=== PATIENT | female | born 1975 | race Caucasian/White ===

== ENCOUNTER 2016-08-26 09:15 | Emergency (ER) | payer MEDICAID ==
[~2016-08-26] VITALS: Ht 160 cm; Wt 64.5 kg
[2016-08-26 09:19] VITALS: Ht 160 cm; Wt 64.5 kg
[2016-08-26] MEDS ORDERED: ACETAMINOPHEN 325 MG TAB PO STA (09:35)
[2016-08-26 10:19] LABS: ADD SCAN DIFF NO
[2016-08-26 10:21] LABS: BASOPHILS % 0.3 % (0.0-2.0); EOSINOPHILS # 0.1 10^3/ul (0.0-0.5); EOSINOPHILS % 0.9 % (0.0-7.0); HEMATOCRIT 39.1 % (37.0-47.0); HEMOGLOBIN 13.4 g/dl (12.0-16.0); LYMPHOCYTES # 2.2 10^3/ul (0.8-2.9); LYMPHOCYTES % 31.5 % (15.0-51.0); MEAN CORPUSCULAR HEMOGLOBIN 30.9 pg (29.0-33.0); MEAN CORPUSCULAR HGB CONC 34.3 g/dl (32.0-37.0); MEAN CORPUSCULAR VOLUME 90.3 fl (82.0-101.0); MEAN PLATELET VOLUME 10.4 fl (7.4-10.4); MONOCYTE # 0.4 10^3/ul (0.3-0.9); MONOCYTES % 6.4 % (0.0-11.0); NEUTROPHIL # 4.1 10^3/ul (1.6-7.5); NEUTROPHILS % 60.6 % (39.0-77.0); PLATELET COUNT 267 10^3/UL (140-415); RED BLOOD COUNT 4.33 10^6/ul (4.20-5.40); RED CELL DISTRIBUTION WIDTH 14.5 % (11.5-14.5); WHITE BLOOD COUNT 6.8 10^3/ul (4.8-10.8)
--- NOTE | 2016-08-26 10:22 | RADRPT ---
PROCEDURE: US OB. CLINICAL INDICATION: 41-year-old female with vaginal bleeding. TECHNIQUE: Transabdominal and transvaginal views of the pelvis are available for review. COMPARISON: No prior studies are available for comparison. FINDINGS: The uterus is identified measuring 8.4 cm sagittal by 5.1 cm AP by 6.5 cm transverse. It contains a gestational sac measuring 1.4 x 1.1 x 1.8 cm. Mean sac diameter: 1.4 cm. This calculates out to 6 weeks 0 days. A yolk sac is identified with a pole. [place]-rump length is 0.55 cm: 6 weeks 2 days. Placenta: Circumferential grade 0. Presentation:Mobile [place]-rump length:1.4 cm heart rate:132 beats per minute. Amniotic fluid volume: Normal. Ultrasound estimated gestational age: The left ovary measures 2.7 x 1.95 1.9 cm. There is normal blood flow to the left ovary. The right ovary is not visualized. No ovarian or adnexal mass lesion is seen. Small amount of free fluid is present in the cul-de-sac. IMPRESSION: 1. A single viable fetus is identified presenting mobile with a heart rate of 132 beats per minute. AUA: 6 weeks 1 day plus or minus air weeks 3 days. 2. HAVEN (AUA: 04/10/2017. 3. The right ovary is not visualized. There is a small amount of free fluid in the cul-de-sac. RPTAT:AAJJ Physician Niecy Date Time Electronically viewed and signed by Kang Reilly Physician on 08/26/2016 10:22 JM/
[2016-08-26 10:34] LABS: ADD UMIC YES; UR ASCORBIC ACID NEGATIVE (NEGATIVE); UR BACTERIA FEW /HPF (NONE SEEN); UR BILIRUBIN (Dip) NEGATIVE (NEGATIVE); UR BLOOD (Dip) 2+ mg/dL (NEGATIVE); UR CLARITY CLEAR (CLEAR); UR COLOR STRAW (YELLOW); UR GLUCOSE (Dip) NEGATIVE (NEGATIVE); UR KETONES (Dip) NEGATIVE (NEGATIVE); UR LEUKOCYTE ESTERASE (Dip) NEGATIVE Leu/ul (NEGATIVE); UR NITRITE (Dip) NEGATIVE (NEGATIVE); UR RBC 0 /HPF (0-5); UR SPECIFIC GRAVITY (Dip) 1.003 (1.003-1.030); UR TOTAL PROTEIN (Dip) NEGATIVE (NEGATIVE); UR UROBILINOGEN (Dip) NEGATIVE (NEGATIVE)
--- NOTE | 2016-08-26 11:10 | ERD ---
ER Documentation Chief Complaint Date/Time DATE: 08/26/16 TIME: 11:06 Chief Complaint VAG BLEEDING X2 DAYS, , LMP 07/22/16 HPI This is a 41-year-old female presenting to the emergency department for vaginal bleeding 2 days. Patient states she is currently with last menstrual period 07/22/2016. Patient is a A0. Patient states she is having light pink spotting with passage of 2 small bright red clots. No passage of tissue. Patient is having lower back pain radiating to lower abdomen. No dysuria or hematuria. Patient is having urinary frequency. No nausea or vomiting. Patient is currently taking vitamins, iron, calcium and folic acid. ROS All systems reviewed and are negative except as per history of present illness. Allergies Allergies: Coded Allergies: No Known Allergy (Unverified , 08/26/16) PMhx/Soc Medical and Surgical Hx: pt denies Medical Hx, pt denies Surgical Hx Hx Alcohol Use: No Hx Substance Use: No Hx Tobacco Use: No Smoking Status: Never smoker Physical Exam Vitals Vital Signs Date Time Temp Pulse Resp B/P Pulse Ox O2 Delivery O2 Flow Rate FiO2 08/26/16 09:19 98.2 69 18 120/74 98 Physical Exam Const: No acute distress, alert Head: Atraumatic Eyes: Normal Conjunctiva ENT: Normal External Ears, Nose and Mouth. Neck: Full range of motion..~ No meningismus. Resp: Clear to auscultation bilaterally. No wheezing, rhonchi or crackles. Cardio: Regular rate and rhythm, no murmurs Abd: Soft, non tender, non distended. Normal bowel sounds Skin: No petechiae or rashes Back: No midline or flank tenderness Ext: No cyanosis, or edema Neur: Awake and alert Psych: Normal Mood and Affect Result Diagram: 08/26/16 0950 Results 24 hrs Laboratory Tests Test 08/26/16 09:50 White Blood Count 6.810^3/ul Red Blood Count 4.3310^6/ul Hemoglobin 13.4g/dl Hematocrit 39.1% Mean Corpuscular Volume 90.3fl Mean Corpuscular Hemoglobin 30.9pg Mean Corpuscular Hemoglobin Concent 34.3g/dl Red Cell Distribution Width 14.5% Platelet Count 12177^3/UL Mean Platelet Volume 10.4fl Neutrophils % 60.6% Lymphocytes % 31.5% Monocytes % 6.4% Eosinophils % 0.9% Basophils % 0.3% Nucleated Red Blood Cells % 0.0/100WBC Neutrophils # 4.110^3/ul Lymphocytes # 2.210^3/ul Monocytes # 0.410^3/ul Eosinophils # 0.110^3/ul Basophils # 0.010^3/ul Nucleated Red Blood Cells # 0.010^3/ul Urine Color STRAW Urine Clarity CLEAR Urine pH 8.0 Urine Specific [place] 1.003 Urine Ketones NEGATIVEmg/dL Urine Nitrite NEGATIVEmg/dL Urine Bilirubin NEGATIVEmg/dL Urine Urobilinogen NEGATIVEmg/dL Urine Leukocyte Esterase NEGATIVELeu/ul Urine Microscopic RBC 0/HPF Urine Microscopic WBC 1/HPF Urine Bacteria FEW/HPF Urine Hemoglobin 2+mg/dL Urine Glucose NEGATIVEmg/dL Urine Total Protein NEGATIVEmg/dl Beta HCG, Quantitative 54672.0mIU/ml Current Medications Medications (Trade) Dose Ordered Sig/[place]aine Route PRN Reason Start Time Stop Time Status Last Admin Dose Admin Acetaminophen (Tylenol Tab) 650 mg ONCE STAT PO 08/26/16 09:35 08/26/16 09:37 DC Procedures/[place] [id number] Radiology Main Line: [phone] DIAGNOSTIC IMAGING REPORT Patient: JOSEPH RICHARDSON : 1975 Age: 41 Sex: F MR #: [id number] DOS: 08/26/16 0935 Ordering MD: ALFONSO SMITH NP Location: [facility] Room/Bed: PROCEDURE: US OB. CLINICAL INDICATION: 41-year-old female with vaginal bleeding. TECHNIQUE: Transabdominal and transvaginal views of the pelvis are available for review. COMPARISON: No prior studies are available for comparison. FINDINGS: The uterus is identified measuring 8.4 cm sagittal by 5.1 cm AP by 6.5 cm transverse. It contains a gestational sac measuring 1.4 x 1.1 x 1.8 cm. Mean sac diameter: 1.4 cm. This calculates out to 6 weeks 0 days. A yolk sac is identified with a pole. [place]-rump length is 0.55 cm: 6 weeks 2 days. Placenta: Circumferential grade 0. Presentation: Mobile [place]-rump length: 1.4 cm heart rate: 132 beats per minute. Amniotic fluid volume: Normal. Ultrasound estimated gestational age: The left ovary measures 2.7 x 1.95 1.9 cm. There is normal blood flow to the left ovary. The right ovary is not visualized. No ovarian or adnexal mass lesion is seen. Small amount of free fluid is present in the cul-de-sac. IMPRESSION: 1. A single viable fetus is identified presenting mobile with a heart rate of 132 beats per minute. AUA: 6 weeks 1 day plus or minus air weeks 3 days. 2. HAVEN (AUA: 04/10/2017. 3. The right ovary is not visualized. There is a small amount of free fluid in the cul-de-sac. MDM: This is a 41-year-old female presenting to emergency department for vaginal bleeding 2 days while . This is patient's first . Patient states she has light pink spotting with passage of 2 bright red blood clots. No nausea or vomiting. No dysuria or hematuria. Labs show no significant anemia or infection. Urine is negative for infection. OB ultrasound reviewed by radiologist shows a single viable fetus identified presenting mobile with a heart rate of 132 bpm. Right ovary is not visualized. There is small amount of free fluid in the cul-de-sac. Beta-hCG is 40,939.0. Differential diagnosis includes but not limited to ectopic , threatened , missed , normal , subchorionic hemorrhage , ruptured ovarian cyst, UTI or pyelonephritis. Patient is appropriate for outpatient management. Instructed patient to follow- up with [facility]ACH[facility] OPERATOR in the next 2-3 days for reassessment. Resources for PCP and OB/ [employer]IC DESIGN ENGINEER provided. Return to ED sooner for any high fever, chest pain, difficulty breathing, shortness breath, wheezing, vomiting, diarrhea, abdominal pain or any new or worsening symptoms. Patient verbalizes understanding. All questions answered at discharge. Egyptian translation used during this encounter. Departure Diagnosis: Primary Impression: Vaginal bleeding in patient at less than 20 weeks gestation Condition: ALFONSO Nicole NP Aug 26, 2016 11:10
== END 2016-08-26 12:33 | disposition home or self-care (01) ==
LOC: FTE 09:15
DX: O20.9 Hemorrhage in early pregnancy, unspecified (principal); R10.2 Pelvic and perineal pain; Z3A.01 Less than 8 weeks gestation of pregnancy
CPT/HCPCS: 36415; 76801; 81001; 84702; 85025; 86900; 86901; Z7502; Z7610